=== PATIENT | female | born 1995 | race African-American/Black ===

== ENCOUNTER 2017-07-06 23:16 | Emergency (ER) | payer SELFPAY ==
[2017-07-06 23:34] VITALS: BP 85/53; BMI 30.7
--- NOTE | 2017-07-07 00:30 | DR.EXTPAIN ---
HPI - Time seen Time seen: 00:27 - PCP Primary Care Physician: NFD - Complaint/Symptoms Chief Complaint Doctor Comments: Patient states she fell out the bath tube at home while she was trying to get out the bath tube she slipped hurting her left arm and wrist about two hours agot. Patient states it hurts to move her fingers on her left hand and to move her wrist. She denies head trauma or LOC. States she does not have a local doctor. stats her last period was May 18. Stats she can take motrin but the tylenol upsets her stomach. She has not had anything for the pain today. Chief Complaint:: LEFT WRIST PAIN, FELLL OUT OF BATH TUB. NOTED LEFT WRIST EDEMA. - Nurses notes reviewed Nurses Notes Review: Yes - Source History Provided: Patient - Mode of arrival Mode of Arrival: Ambulatory - Timing Onset of Chief Complaint: 07/06/17 - Context History of: None - Associated signs and symptoms Associated Signs and Symptoms: Pain, Swelling PMH - PMH Past Medical History: No Past Surgical History: No - Family History History of Family Medical Conditions: No - Social History Does patient currently use any type of tobacco product: No Have you used tobacco products in the last 12 months: No Type of Tobacco Use: None Does any household member use tobacco: No Alcohol Use: None Do you use any recreational Drugs:: No Lives With: Family Lives Where: Home - infectious screening Have you traveled outside the country in the last 6 months?: No Isolation: Standard ROS - Review of Systems Constitutional: No Symptoms Reported. negative: See HPI, Chills, Diaphoresis, Fever, Malaise, Weakness, Irritable, Fatigue, Loss of Appetite, Other Eyes: No Symptoms Reported. negative: See HPI, Eye Pain, Blurred Vision, Tearing, Discharge, Photophobia, Diplopia, Other ENTM: No Symptoms Reported. negative: See HPI, Ear Pain, Ear Discharge, Pulling on Ears, Hearing Loss, Nose Pain, Nose Discharge, Epistaxis, Nose Congestion, Mouth Pain, Mouth Swelling, Loose Teeth, Drooling, Throat Pain, Throat Swelling, Ear Foreign Body Respiratoy: No Symptoms Reported. negative: See HPI, Productive Cough, Non- Productive Cough, Moist Cough, Dry Cough, Hacking Cough, Barking Cough, Brassy Cough, Orthopnea, Short of Breath, Stridor, Wheezing, Hemoptysis, Other Cardiovascular: No Symptoms Reported. negative: See HPI, Chest Pain, Edema, Palpitations, Syncope, Cyanosis, Skin Mottling, Other Gastrointestinal/Abdominal: No Symptoms Reported. negative: See HPI, Abdominal Pain, Constipation, Diarrhea, Nausea, Vomiting, Food Intolerance, Other Genitourinary: No Symptoms Reported Neurological: No Symptoms Reported. negative: See HPI, Anxiety, Depressed, Emotional Problems, Headache, Numbness, Paresthesia, Pre-existing Deficit, Seizure, Tingling, Tremors, Weakness, Dizziness, Problems Walking, Speech Problem, Other Musculoskeletal: Left, Forearm (pain on movement), Wrist, Hand Integumentary: No Symptoms Reported. negative: See HPI, Change in Color, Change in Hair/Nails, Dryness, Lesions, Lumps, Rash, Itching, Wound, Bruises, Juandice, Other Hematologic/Lymphatic: No Symptoms Reported. negative: See HPI, Anemia, Blood Clots, Easy Bleeding, Easy Bruising, Swollen Glands, Lymphadenopathy, Other Endocrine: No Symptoms Reported Psychiatric: No Symptoms Reported. negative: See HPI, Anxiety, Depression, Hallucinations, Excessive crying, Suicidal, Other PE - Vital Signs Vitals: Temperature 97.8 F Pulse Rate 72 Respiratory Rate 16 Blood Pressure 85/53 O2 Sat by Pulse Oximetry 100 - General Limitations: No Limitations General Appearance: Alert, In No Apparent Distress - Head Head Exam: Normal Inspection, Atraumatic, Normocephalic - Eyes Eye exam: Normal Appearance, PERRL, EOMI. negative: Scleral Icterus, Conjunctival Injection, Nystagmus, Miosis, Mydrasis, Periorbital Swelling, Periorbital Tenderness, Other - ENT ENT Exam: Normal Exam, Normal Oropharynx, Normal External Ear Exam, Mucous Membranes Moist, TM's Normal Bilaterally - Neck Neck Exam: Normal Inspection, Full ROM, Trachea Midline - Chest Chest Inspection: Normal Inspection, Symmetric Chest Wall Rise. negative: Tenderness, Rash, Abscess, Other - Respiratory Respiratory Exam: Normal Lung Sounds Bilat Respiratory Exam: Bilateral Clear to Auscultation - Cardiovascular Cardiovascular Exam: Regular Rate, Normal Rhythm, Normal Heart Sounds. negative : Bradycardia, Tachycardia, Irregular Rhythm, Systolic Murmur, Diastolic Murmur , Rubs, Gallop, Clicks, JVD, +S1, +S2, +S3, +S4, Other - Abdominal Exam Abdominal Exam: Normal Inspection, Normal Bowel Sounds, Soft Abdominal Tenderness: negative: RUQ, RLQ, LUQ, LLQ, Epigastrium, Suprapubic, Diffuse, Mild, Moderate, Severe, Other - Extremities Extremities Exam: Normal Inspection, Full ROM, Tenderness (left wrist tender on palpation), Normal Capillary Refill - Upper Extremities Shoulder Exam: Normal Inspection, Full ROM. negative: Tenderness, Swelling, Abrasion, Laceration, Ecchymosis, Deformity, Crepitus, Dislocation, Erythema, Tenderness over AC Joint, Other Arm Exam: Normal Inspection, Full ROM. negative: Tenderness, Swelling, Abrasion , Laceration, Ecchymosis, Deformity, Crepitus, Erythema, Other Elbow Exam: Normal Inspection, Full ROM Forearm Exam: Normal Inspection, Full ROM, Tenderness (left forearm tender with tenderness at left wrist; no swelling or abrasion) Hand Exam: Normal Inspection, Full ROM, Tenderness (left wrist) Neuromotor Exam: Normal Exam, Wrist Extension Neurosensory Exam: Normal Exam Hand Tendon Exam: Flexor Digitorium Profundus (Location) (normal) Upper Ext. Vascular Exam: Capillary Refill (normal) - Lower Extremities Hip/Pelvis Exam: Normal Inspection, Full ROM. negative: Tenderness, Swelling, Abrasion, Laceration, Ecchymosis, Deformity, Crepitus, Dislocation, Erythema, External Rotation, Internal Rotation, Shortening, Pelvis Stable, Other Upper Leg Exam: Normal Inspection, Full ROM. negative: Tenderness, Swelling, Abrasion, Laceration, Ecchymosis, Deformity, Crepitus, Dislocation, Erythema, Other Knee Exam: Normal Inspection, Full ROM Lower Leg Exam: Normal Inspection, Full ROM Ankle Exam: Normal Inspection, Full ROM Foot/Toe Exam: Normal Inspection, Full ROM Neurovascular/Tendon Exam: Normal Capillary Refill Gait Exam: Not Tested/Not Observed - Back Back Exam: Normal Inspection, Full ROM - Neurological Neurological Exam: Alert, Oriented X3, CN II-XII Intact, Normal Gait, Reflexes Normal - Psychiatric Psychiatric Exam: Normal Affect, Normal Mood - Skin Skin Exam: Warm, Dry, Intact, Normal Color Type of Lesion: negative: Rash, Abscess, Laceration, Foreign Body, Bite/Sting, Abrasion, Other Distribution: negative: Generalized, Involves Palms/Soles, Head, Face, Neck, Thorax, Chest, Back, Abdomen, Genitals, LUE, LLE, RUE, RLE, Other Description: negative: Size, Tenderness, Erythematous, Swelling, Macular, Papular, Vesicular, Blisters, Cofluent, Bullous, Petechial, Purpuric, Urticarial , Crusting, Discharge, Fluctuant, Indurated, Other ROR - Labs Reviewed Laboratory Results Reviewed?: Yes (all x-ray results reviewed and discussed with patient) - XRAY XRAY Interpreted by: Radiologist (left forearm: there is dorsal soft tissue edema of the proximal forearm.) - Diagnosis Discharge Problem: Left arm pain, Contusion of left arm, Myalgia, traumatic - Discharge Plan Disposition: HOME, SELF-CARE Condition: Stable Prescriptions: Meloxicam [MOBIC 15 MG *] 15 mg PO DAILY #10 tab - Follow ups/Referrals Follow ups/Referrals: NFD,None [Primary Care Provider] - 3 days ERIC MARTIN [STAFF PHYSICIAN] - 3 days - Instructions Instructions: Hand Contusion, Muscle Pain, Adult, Fall Prevention in the Home, [id number]
--- NOTE | 2017-07-07 01:00 | RAD ---
EXAM: Left forearm x-ray INDICATION: Pain COMPARISION: No priors for comparison TECHNIQUE: AP, lateral, 2 views FINDINGS: No acute fracture or dislocation. The joint spaces are preserved. The soft tissues are edematous simona donald. No radiopaque foreign body. IMPRESSION: There is dorsal soft tissue edema of the proximal forearm. Reported By:
== END 2017-07-07 02:22 | disposition home or self-care (01) ==
LOC: ER 23:16
DX: S40.022A Contusion of left upper arm, initial encounter (principal); M79.1 Myalgia; M79.602 Pain in left arm; M79.89 Other specified soft tissue disorders; W19.XXXA Unspecified fall, initial encounter; Y92.009 Unspecified place in unspecified non-institutional (private) residence as the place of occurrence of the external cause
CPT/HCPCS: 73090; 99282